=== PATIENT | female | born 1950 | race Caucasian/White ===

== ENCOUNTER 2019-10-02 00:25 | Inpatient (IN) | payer OTHER, MEDICAID ==
[~2019-10-02] VITALS: Ht 152.4 cm; Wt 50.9 kg
[~2019-10-02 00:25] MED LIST: ASPI81CH43; CAR3125T; GLYB2.5T8; LISI-711; METF-916
[2019-10-02 01:13] LABS: Basophils # (auto) 0.1 10 ^3/uL (0-0.2); Basophils % (auto) 0.8 % (0.0-2.0); Eosinophils # (auto) 0 10 ^3/uL (0-0.8); Hemoglobin 10.9 g/dL (12.2-16.2); Lymphocytes # (auto) 0.7 10 ^3/uL (0.4-5.4); Lymphocytes % (auto) 4.4 % (10.0-50.0); Mean Corpuscular Hemoglobin 28.6 pg (28.0-32.0); Mean Corpuscular Volume 89.4 fL (80.0-100.0); Monocytes % (auto) 6.8 % (0.0-12.0); Neutrophils # (auto) 13.4 10 ^3/uL (1.6-8.6); Platelet Count (auto) 222 10^3/uL (140-450); Red Cell Distribution Width 14.3 % (11.8-14.3); White Blood Cell 15.2 10^3/uL (4.4-10.8)
[2019-10-02 01:31] LABS: Albumin 2.9 g/dL (3.4-5.0); Anion Gap 13 (5-15); BUN/Creatinine Ratio 29.1; Blood Urea Nitrogen 43 mg/dL (7-18); Calcium 8.3 mg/dL (8.5-10.1); Carbon Dioxide 16 mmol/L (21-32); Chloride 104 mmol/L (98-107); GFR African American 45 mL/min; GFR Non-African American 37 mL/min; Potassium 5.3 mmol/L (3.5-5.1); Sodium 133 mmol/L (136-145)
[2019-10-02 01:34] LABS: Lactic Acid w/Reflex 3.3 mmol/L (0.4-2.0)
[2019-10-02 01:36] LABS: Alanine Aminotransferase 17 U/L (13-56); Alkaline Phosphatase 69 U/L (45-117); Aspartate Aminotransferase 18 U/L (15-37); Bilirubin, Total 0.4 mg/dL (0.2-1.0); Glucose 474 mg/dL (74-106); Total Protein 6.8 g/dL (6.4-8.2)
[2019-10-02 03:01] LABS: Urine Bacteria MANY /hpf (None Seen); Urine Blood 2+ /uL (Negative); Urine Mucus FEW (None Seen); Urine Specific Gravity 1.014 (1.001-1.035); Urine WBC 98 /hpf (0 - 5); Urine WBC Clumps PRESENT /hpf (None Seen)
[2019-10-02] MEDS ORDERED: VANCOMYCIN 1GM/250ML 250 ML IV ONE (03:30)
[2019-10-02] MEDS ORDERED: InsuLIN REG 1unit/0.01ml Soln (100units/ml) IV ONE (03:30)
[2019-10-02] MEDS ORDERED: PIPERACILLIN-TAZOB 3.375GM 100 ML IV ONE (03:30)
[2019-10-02] MEDS ORDERED: SODIUM CHLORIDE 0.9% 1,000 ML IV ONE (03:30)
[2019-10-02] MEDS ORDERED: SODIUM ZIRCONIUM CYCL 10 GM PAK PO ONE (06:00)
[2019-10-02] MEDS ORDERED: ACETAMINOPHEN 325 MG TAB PO PRN (06:00)
[2019-10-02] MEDS ORDERED: DEXTROSE (50%) 50ML SYRG IV PRN (06:00)
[2019-10-02] MEDS ORDERED: NITROGLYCERIN 0.4 MG SL TAB SL PRN (06:00)
[2019-10-02] MEDS ORDERED: MORPHINE SULF INJ 2 MG/ML SYRINGE 1ML IV PRN (06:00)
[2019-10-02] MEDS ORDERED: TEMAZEPAM 15 MG CAP PO PRN (06:00)
[2019-10-02] MEDS ORDERED: ONDANSETRON HCL 4 MG/2 ML VIAL IV PRN (06:00)
[2019-10-02] MEDS: ACCU-CHEK COMFORT CURVE STRIP VI SCH ×3 (06:40→17:19)
[2019-10-02] MEDS: InsuLIN REG 1unit/0.01ml Soln (100units/ml) SC SCH ×3 (06:40→17:19)
[2019-10-02 07:10] VITALS: BP 113/62
[2019-10-02 08:00] VITALS: BP 111/61
[2019-10-02 08:56] VITALS: BP 99/57
[2019-10-02] MEDS ORDERED: cefTRIAXone 1GM/50ML D5W 50 ML IV SCH (09:00)
[2019-10-02] MEDS ORDERED: OME20T PO (09:21)
[2019-10-02] MEDS ORDERED: CARVEDILOL 3.125 MG TAB PO SCH (10:00)
[2019-10-02] MEDS ORDERED: PANTOPRAZOLE 40 MG TAB PO SCH (10:00)
[2019-10-02] MEDS ORDERED: LISINOPRIL 5 MG TAB PO SCH (10:00)
[2019-10-02] MEDS ORDERED: ENOXAPARIN SOD 30 MG/0.3 ML SYRINGE SC SCH (10:00)
[2019-10-02 12:51] VITALS: BP 101/61
[2019-10-02 14:32] LABS: Basophils # (auto) 0.1 10 ^3/uL (0-0.2); Basophils % (auto) 0.6 % (0.0-2.0); Eosinophils # (auto) 0 10 ^3/uL (0-0.8); Eosinophils % (auto) 0.1 % (0.0-7.0); Hematocrit 30.4 % (36.0-46.0); Lymphocytes # (auto) 0.7 10 ^3/uL (0.4-5.4); Lymphocytes % (auto) 5.6 % (10.0-50.0); Mean Corpuscular Hemoglobin 29.4 pg (28.0-32.0); Mean Corpuscular Volume 88.9 fL (80.0-100.0); Monocytes % (auto) 8.2 % (0.0-12.0); Neutrophils # (auto) 10.2 10 ^3/uL (1.6-8.6); Neutrophils % (auto) 85.5 % (37.0-80.0); Platelet Count (auto) 197 10^3/uL (140-450); Red Blood Cells 3.42 10^6/uL (4.0-5.20); Red Cell Distribution Width 14.2 % (11.8-14.3); White Blood Cell 11.9 10^3/uL (4.4-10.8)
[2019-10-02 14:58] LABS: Potassium 4.2 mmol/L (3.5-5.1)
[2019-10-02 15:32] LABS: BUN/Creatinine Ratio 25.3; Calcium 8.5 mg/dL (8.5-10.1)
[2019-10-02 16:52] VITALS: BP 119/74
[2019-10-02] MEDS ORDERED: PROM25TA5 PO (18:14)
[2019-10-02] MEDS ORDERED: LEVO500T21 PO (18:14)
[2019-10-02 18:40] VITALS: BP 101/61
== END 2019-10-02 19:50 | disposition home health service (06) | DRG 871 ==
LOC: EDSEX 00:25 → EDBD 00:25 → ER 00:26 → TELE 00:27 → TELE-WESTW 06:30
PROVIDERS: ADMIT Nurse Practitioner; ATTEND Internal Medicine
DX: A41.9 Sepsis, unspecified organism (principal); G92 Toxic encephalopathy; N39.0 Urinary tract infection, site not specified; N17.9 Acute kidney failure, unspecified; I13.0 Hypertensive heart and chronic kidney disease with heart failure and stage 1 through stage 4 chronic kidney disease, or unspecified chronic kidney disease; E11.65 Type 2 diabetes mellitus with hyperglycemia; E87.5 Hyperkalemia; I50.9 Heart failure, unspecified; N18.3 Chronic kidney disease, stage 3 (moderate); F02.80 Dementia in other diseases classified elsewhere, unspecified severity, without behavioral disturbance, psychotic disturbance, mood disturbance, and anxiety; D72.829 Elevated white blood cell count, unspecified; E11.22 Type 2 diabetes mellitus with diabetic chronic kidney disease; K21.9 Gastro-esophageal reflux disease without esophagitis; Z88.2 Allergy status to sulfonamides; Z79.899 Other long term (current) drug therapy; Z79.82 Long term (current) use of aspirin; Z79.84 Long term (current) use of oral hypoglycemic drugs; I25.2 Old myocardial infarction; Z79.4 Long term (current) use of insulin
CPT/HCPCS: 36415; 36600; 70450; 71045; 80048; 80053; 81001; 82728; 82805; 82962; 83605; 83735; 83880; 84484; 85025; 87040; 87086; 87088; 87186; 93005; 96361; 96365; 96375; 99291; G0378; J0696; J1815; J2543

== ENCOUNTER 2021-07-05 03:53 | Emergency (ER) | payer OTHER, MEDICAID ==
[~2021-07-05] VITALS: Ht 162.6 cm; Wt 49.9 kg
[~2021-07-05 03:53] MED LIST changes: +LEVO500T31 PO; +OME20T PO; +PROM25TA5 PO
[2021-07-05 10:21] LABS: INR 0.95 (0.9-1.15); Partial Thromboplastin Time 24.1 sec (23.6-33.0); Potassium 5.1 mmol/L (3.5-5.1)
[2021-07-05 10:22] LABS: Basophils # (auto) 0 10 ^3/uL (0-0.2); Basophils % (auto) 0.4 % (0.0-2.0); Eosinophils # (auto) 0 10 ^3/uL (0-0.8); Eosinophils % (auto) 0.1 % (0.0-7.0); Hematocrit 39.9 % (36.0-46.0); Hemoglobin 13.3 g/dL (12.2-16.2); Lymphocytes # (auto) 0.9 10 ^3/uL (0.4-5.4); Lymphocytes % (auto) 8.7 % (10.0-50.0); Mean Corpuscular Hemoglobin 29.3 pg (28.0-32.0); Mean Corpuscular Hgb Conc. 33.4 g/dL (32.0-36.0); Mean Corpuscular Volume 87.7 fL (80.0-100.0); Monocytes # (auto) 0.6 10 ^3/uL (0-1.3); Monocytes % (auto) 6.1 % (0.0-12.0); Neutrophils # (auto) 8.9 10 ^3/uL (1.6-8.6); Neutrophils % (auto) 84.7 % (37.0-80.0); Nucleated Red Blood Cells % 0.1 %; Red Blood Cells 4.55 10^6/uL (4.0-5.20); Red Cell Distribution Width 14.9 % (11.8-14.3); White Blood Cell 10.5 10^3/uL (4.4-10.8)
[2021-07-05 10:34] LABS: Albumin 3.1 g/dL (3.4-5.0); BUN/Creatinine Ratio 32.5; Bilirubin, Total 0.3 mg/dL (0.2-1.0); Total Protein 7.8 g/dL (6.4-8.2)
[2021-07-05 16:23] LABS: Urine Bacteria FEW /hpf (None Seen); Urine Blood 1+ /uL (Negative); Urine Specific Gravity 1.014 (1.001-1.035); Urine WBC 28 /hpf (0 - 5)
[2021-07-05] MEDS ORDERED: levETIRAcetam 500 MG/5ML INJ IV ONE (20:24)
[2021-07-05 22:45] VITALS: BP 93/57
== END 2021-07-05 23:15 | disposition short-term general hospital (02) ==
LOC: EDBD 03:53 → ER 03:53
DX: U07.1 COVID-19 (principal); M25.552 Pain in left hip; M79.605 Pain in left leg; E11.22 Type 2 diabetes mellitus with diabetic chronic kidney disease; N18.9 Chronic kidney disease, unspecified; I50.9 Heart failure, unspecified; I25.2 Old myocardial infarction; Z79.82 Long term (current) use of aspirin; Z79.2 Long term (current) use of antibiotics; Z79.899 Other long term (current) drug therapy; Z88.2 Allergy status to sulfonamides; W01.0XXA Fall on same level from slipping, tripping and stumbling without subsequent striking against object, initial encounter; Y93.89 Activity, other specified; Y92.89 Other specified places as the place of occurrence of the external cause; Y99.8 Other external cause status
CPT/HCPCS: 36415; 70450; 71045; 73502; 80053; 81001; 83880; 84484; 85025; 85610; 85730; 87426; 96365; 99285; J1953; J7060